=== PATIENT | female | born 1965 | race Caucasian/White ===

== ENCOUNTER → 2018-07-20 21:07 | Outpatient (REF) | payer OTHER, SELFPAY ==
[2018-07-20 21:40] LABS: Alanine Aminotransferase 27 IU/L (9-52); Albumin 4.5 g/dL (3.5-5.0); Albumin Globulin Ratio 1.6 (1.0-2.8); Alkaline Phosphatase 103 U/L (38-126); Aspartate Aminotransferase 21 IU/L (14-36); BUN Creatinine Ratio 15.6 (6-22); Bilirubin Total 0.4 mg/dL (0.2-1.3); Blood Urea Nitrogen 14 mg/dL (7-17); Calcium 9.3 mg/dL (8.4-10.2); Carbon Dioxide 25 mmol/L (22-32); Chloride 105 mmol/L (98-107); Cholesterol 216 mg/dL (140-199); Estimated Glomerular Filt Rate > 60.0 mL/min (>60); Globulin 2.9 g/dL (1.7-4.1); Glucose 88 mg/dL (70-100); HDL Cholesterol 53 mg/dL (40-60); HEMOLYSIS 19 (0-50); LDL Cholesterol Calculated 149 mg/dL (<100); Potassium 4.2 mmol/L (3.4-5.1); Sodium 141 mmol/L (137-145); Total Protein 7.4 g/dL (6.3-8.2); Triglycerides 71 mg/dL (35-150)
[2018-07-20 22:14] LABS: Vitamin D 25 Hydroxy (D3) 29.5 ng/mL (30.0-100.0)
== END ==
LOC: LAB 21:07
PROVIDERS: PCP Specialist; Visit Provider Physician Assistant Medical
DX: Z00.00 Encounter for general adult medical examination without abnormal findings (principal); Z13.220 Encounter for screening for lipoid disorders; E55.9 Vitamin D deficiency, unspecified
CPT/HCPCS: 36415; 80053; 80061; 82306

== ENCOUNTER → 2019-07-28 11:02 | Outpatient (CLI) | payer OTHER, SELFPAY ==
--- NOTE | 2019-07-28 | DI.MRI.S_ITS ---
PROCEDURE: MR LUMBAR SPINE WO CON INDICATIONS: low back pain TECHNIQUE: Noncontrast sagittal T1 spin echo and T2 fast echo, sagittal STIR, axial T1 and T2 fast spin echo through the lumbar spine. In cases with scoliosis, additional coronal T2 fast spin echo may be performed. COMPARISON: None. FINDINGS: Image quality: Excellent. Alignment and Curvature: There is normal bony alignment. Bone Marrow: Multilevel degenerative endplate sclerosis and spurring. Diffuse facet arthropathy. No acute vertebral body compression fractures. Spinal Cord: Conus medullaris terminates at the L1 level. Visualized cord demonstrates normal signal and size. Paraspinous Soft Tissues: No paravertebral masses. There is nonspecific, dependent posterior subcutaneous soft tissue edema from level of L1-sacrum. L1-L2: Normal appearance. L2-L3: Normal appearance. L3-L4: Minimal canal narrowing. Lateral recesses appear patent. Mild right and minimal left foraminal narrowing. L4-L5: Left paracentral disc protrusion, with mild-moderate left-sided canal narrowing. There is also near complete effacement of the left lateral recess. The right lateral recess appears grossly patent. Moderate bilateral foraminal narrowing with slight nerve root compression on both sides. L5-S1: Minimal canal narrowing. The lateral recesses appear grossly patent. Mild left foraminal narrowing. No right foraminal stenosis IMPRESSION: Lower lumbar spondylosis and facet arthropathy. Bilateral foraminal stenoses as detailed above by spinal level most pronounced at L4-L5. Asymmetric left-sided subarticular narrowing at the level of L4-L5, suggesting impingement of the descending L5 nerve root Dictated by: Wood Griffith M.D. on 07/28/2019 at 13:39 Approved by: Wood Griffith M.D. on 07/28/2019 at 13:54
== END ==
PROVIDERS: PCP Physician Assistant Medical; Referring Provider Physician Assistant Medical; Visit Provider Physician Assistant Medical
DX: M54.5 Low back pain (principal); M47.816 Spondylosis without myelopathy or radiculopathy, lumbar region; M48.061 Spinal stenosis, lumbar region without neurogenic claudication
CPT/HCPCS: 72148